=== PATIENT | female | born 1950 | race Caucasian/White ===

== ENCOUNTER 2017-08-06 06:21 | Day surgery (SDC) | payer OTHER ==
--- NOTE | 2017-08-05 23:06 | GHP ---
[f rep st] PREOP HISTORY AND PHYSICAL DATE OF ADMISSION: 08/06/2017 Date of surgery scheduled for 08/06/2017 on the gynecology service. PREOPERATIVE DIAGNOSIS: Thickened endometrium. HISTORY UPON PRESENTATION: Patient is a 66-year-old, G0, white female who has been on postmenopausal hormone replacement since the age of 57. Patient has used an atypical approach to progesterone therapy to balance the estrogen. In the past, she has not been able to tolerate traditional methods due to fatigue and only has a progesterone injection every 3 months. In the past, she has had withdrawal bleeding after each injection. However, in the summer she stopped having withdrawal bleeding. The patient had an ultrasound performed in March 2017 which revealed an endometrial thickness of 0.86 cm. This was a slight elevation in the previous endometrial thickness which the patient has had. She generally had regular ultrasounds due to a family history of ovarian cancer. The patient also has a small area of tissue consistent with an endometrial polyp, 5 x 5 mm, which seems to be stable in size. The remainder of the patient's ultrasound was normal and bilaterally her ovaries are small. The patient has had hormone replacement managed by local provider who attempted an endometrial biopsy in February due to the lack of withdrawal bleeds. The patient reported that that was unsuccessful due to the patient's menopausal tight cervix. The patient did not want to re-attempt endometrial biopsy in the office, but opts to go to the operating room for a more thorough assessment and removal of a polyp if found. The patient was given other options of stopping her hormone replacement to see if she would slough the lining versus attempting different progesterone support. The patient did try another progesterone injection in June, but did not have any bleeding. The patient really is hesitant to discontinue her hormones because she feels it dramatically effects her mental functioning. The patient was thoroughly counseled as to the risks and benefits of hysteroscopy, and the consent form is signed. PAST MEDICAL HISTORY: The patient had a bicuspid aortic valve and has been told she has plaque in her aortic root. She sees Dr. Littel and has an echo every 3 years with the last in the summer. The patient reports only minor regurgitation and does not do preventive antibiotics. Also, the patient is hypothyroid and takes Kirkwood replacement. History of osteopenia, history of depression. History of vulvar vestibulitis and vaginal dryness. PAST SURGICAL HISTORY: 1991: Tubal ligation. 1994: Right knee bursa removal. 1998: Left breast excisional biopsy. 2013: Right breast papilloma removed. This surgery was under general anesthesia and the patient had no problems. PAST OBSTETRIC HISTORY: Negative. ALLERGIES: Penicillin, Keflex, and erythromycin causing rashes. The patient also reports gluten allergy with celiac disease. CURRENT MEDICATIONS: 1. Estradiol transdermal patch 0.05 mg twice weekly. 2. Kirkwood Thyroid 45 mg alternating with 30 mg daily. 3. Lexapro 2.5 mg at bedtime. 4. Progesterone injections 100 mg q.3 months. 5. Vaginal estrogen cream 1 g 3 times a week per vagina. 6. Topical ointment for eczema. 7. Recently, fluvastatin added [address] Little. SOCIAL HISTORY: The patient is a nonsmoker. No alcohol or drug use. Patient in a long-term relationship. FAMILY HISTORY: Significant for 3 aunts with ovarian cancer and 1 aunt with breast cancer. The patient reports a family member has been tested and this is negative for the bracket gene. PAST LABORATORY TESTING: Patient's ultrasound in March revealed the uterus 6.7 x 3 x 3 cm with an endometrial thickness of 0.86 with an area of possible cervical polyp 5 x 5 mm. Both ovaries are small. The left ovary has 2 small simple cysts. Prior ultrasound done in November 2015 showed an endometrial thickness 5.9 cm, again with questionable polyp 5 x 6 mm. PHYSICAL EXAM: GENERAL: At the time of preop, the patient is a well-developed , well-nourished, white female in no physical distress. VITAL SIGNS: She is clinically afebrile. Blood pressure 108/70. LUNGS: Clear to auscultation bilaterally. CARDIOVASCULAR: Regular rate and rhythm with very minor systolic ejection murmur. ABDOMEN: Soft and nontender. Bimanual exam not repeated recently. See ultrasound report. ASSESSMENT: Thickened endometrium on hormone replacement with atypical progesterone usage. PLAN: We will proceed with hysteroscopy and D and C with possible polypectomy on 08/06/2017. Patient had intense cramping after Cytotec was used in the past and this will not be repeated. The patient will receive preoperative antibiotics. /[id number]/MODL MTDD
[2017-08-06] MEDS ORDERED: CLINDAMYCIN 900 MG/DEXTROSE 50 ML IV ONE (06:57)
[2017-08-06] MEDS ORDERED: LR 1,000 ML IV ONE (06:57)
[2017-08-06] MEDS ORDERED: SILVER NITRATE APPLICATOR 1 APPL TP ONE (07:02)
[2017-08-06 07:05] VITALS: RESP 16
[2017-08-06 07:18] LABS: PLATELET COUNT 214 10^3/uL (150-400)
--- NOTE | 2017-08-06 07:34 | PDHPUP ---
History & Physical Update H&P update statement: This history and physical update is based on an assessment of the patient which was completed after admission or registration (within 24 hours), but prior to the surgery/procedure.
--- NOTE | 2017-08-06 07:50 | PDANEPAE ---
ANE Past Medical History - Cardiovascular History Hx Hypertension: No Hx Arrhythmias: No Hx Chest Pain: No Hx Coronary Artery / Peripheral Vascular Disease: No Hx CHF / Valvular Disease: No Hx Palpitations: No Cardiovascular History Comment: BORDERLINE ELEV BP. PACS OCCASIONAL. BICUSPID AORTIC VALVE. AT RISK FOR ARTERIAL DISSECTION PER DR MCDANIELS - Pulmonary History Hx COPD: No Hx Asthma/Reactive Airway Disease: No Hx Recent Upper Respiratory Infection: No Hx Oxygen in Use at Home: No Hx Sleep Apnea: Yes Sleep Apnea Screening Result - Last Documented: Negative - Neurologic History Hx Cerebrovascular Accident: No Hx Seizures: No Hx Dementia: No - Endocrine History Hx Diabetes: Yes Hypothyroid: Yes Hyperthyroid: No Obesity: no Endocrine History Comment: HYPOTHYROID - Renal History Hx Renal Disorders: No - Liver History Hx Hepatic Disorders: No - Neurological & Psychiatric Hx Hx Neurological and Psychiatric Disorders: No - Cancer History Hx Cancer: No - Congenital Disorder History Hx Congenital Disorders: No - GI History Hx Gastrointestinal Disorders: No Gastrointestinal History Comment: CELIAC DISEASE - Other Health History Other Health History: ECZEMA. L UPPER THIGH SKIN INF IMPROVING - SPOKE WITH DR OLVERA - Chronic Pain History Chronic Pain: No - Surgical History Prior Surgeries: TUBAL LIGATION. KNEE R SURGERY. COLONOSCOPY. PAPILLOMA R BREAST. LUMP L BREAST ANE Review of Systems Review of Systems: - Exercise capacity METS (RN): 4 METS ANE Patient History - Allergies Allergies/Adverse Reactions: cephalexin [From Keflex] Allergy (Verified 08/06/17 07:02) erythromycin base Allergy (Verified 08/06/17 07:02) Penicillins Allergy (Verified 08/06/17 07:02) - Home Medications Home Medications: [place] Thyroid 07/08/17 [Last Taken 08/06/17 04:30] Desonide 0.05% Oint 07/08/17 [Last Taken 08/05/17] Estradiol Transdermal Patch 07/08/17 [Last Taken 08/05/17] Herbals/Supplements -Info Only 07/08/17 [Last Taken 08/01/17] Lexapro 07/08/17 [Last Taken 08/05/17] Progesterone 07/08/17 [Last Taken 08/05/17] Fluvastatin Sodium 08/05/17 [Last Taken 08/05/17] - NPO status NPO Since - Liquids (Date): 08/06/17 NPO Since - Liquids (Time): 04:30 NPO Since - Solids (Date): 08/05/17 NPO Since - Solids (Time): 20:00 - Smoking Hx Smoking Status: Never smoked ANE Labs/Vital Signs - Labs Result Diagrams: 08/06/17 07:10 - Vital Signs Blood Pressure: 124/76 Heart Rate: 64 Respiratory Rate: 16 O2 Sat (%): 93 Height: 173.99 cm Weight: 68.039 kg ANE Physical Exam - Airway Neck exam: FROM Mallampati Score: Class 1 Mouth exam: normal dental/mouth exam - Pulmonary Pulmonary: no respiratory distress - Cardiovascular Cardiovascular: regular rate and rhythym - ASA Status ASA Status: II ANE Anesthesia Plan Anesthesia Plan: GA w LMA
[2017-08-06] MEDS ORDERED: fentaNYL 100 MCG/2 ML INJ ONE ×2 (07:57→09:30)
[2017-08-06] MEDS ORDERED: PROPOFOL 200 MG/20 ML VIAL ONE ×2 (07:58→08:21)
[2017-08-06] MEDS ORDERED: ONDANSETRON 4 MG/2 ML VIAL ONE (08:54)
[2017-08-06] MEDS ORDERED: KETOROLAC 30 MG/1 ML SDV ONE (08:54)
[2017-08-06] MEDS ORDERED: LIDOCAINE 2% 5 ML SDV ONE (08:54)
[2017-08-06] MEDS ORDERED: DEXAMETHASONE 4 MG/ML VIAL ONE (08:54)
--- NOTE | 2017-08-06 09:17 | POSTOPPROG ---
Post Op Note Date of Operation: 08/06/17 Surgeon: Hafsa Fraga Anesthesiologist: Abundio Grove Anesthesia: LMA Pre-op Diagnosis: thickened lining Post-op Diagnosis: endometrial polyps Indication: atypical prog use with HRT and EMT 8 mm - cx stenosis and no EMB possible Procedure: hysteroscopic polypectomy Findings: multiple soft polypoid tissue in lining and cx, cx dilated easily to 7 Hag Inf/Abcess present in the surg proc area at time of surgery?: No Depth: Organ Space EBL: Minimal Complications: none Specimen(s): endometrial polypoid tissue
[2017-08-06 09:19] VITALS: TEMP 97.5
[2017-08-06] MEDS ORDERED: PROMETHAZINE HCL 25 MG/ML INJ IVP PRN (09:25)
[2017-08-06] MEDS ORDERED: NALOXONE HCL 0.4 MG/ML INJ IVP PRN (09:25)
[2017-08-06] MEDS ORDERED: LR 500 ML IV PRN (09:25)
[2017-08-06] MEDS ORDERED: HYDROCODONE/APAP 5/325 TAB PO PRN (09:25)
--- NOTE | 2017-08-06 09:26 | POSTANESTH ---
Post Anesthetic Evaluation Cardiovascular Status: Normal, Stable Respiratory Status: Normal, Stable Level of Consciousness/Mental Status: Can Participate in Eval Pain Control: Adequate, Prn Tx Ordered Nausea/Vomiting Control: Adequate, Prn Tx Ordered Complications Possibly Related to Anesthesia: None Noted
[2017-08-06] MEDS: fentaNYL 100 MCG/2 ML INJ IVP PRN ×2 (09:32→09:37)
--- NOTE | 2017-08-06 09:47 | GOP ---
[f rep st] OPERATIVE REPORT DATE OF OPERATION: 08/06/2017 SURGEON: Hafsa Fraga MD ANESTHESIA: Laryngeal mask anesthesia. ANESTHESIOLOGIST: Sanna Grove MD. PREOPERATIVE DIAGNOSIS: Thickened endometrium. POSTOPERATIVE DIAGNOSIS: Endometrial polyps. PROCEDURE PERFORMED: Hysteroscopic polypectomy. FINDINGS: SPECIMENS: The specimens of the endometrial polyps were sent to Pathology. ESTIMATED BLOOD LOSS: Minimal. INDICATIONS: Patient is a 66-year-old white female on hormone replacement with an atypical progester one method of q.3 month IM injections. She has typically had withdrawal bleeding which stopped in summer. Pelvic ultrasound revealed a thickened endometrium at 8 mm and the patient was adv ised to have sampling. An endometrial biopsy was attempted but the cervix was too stenotic. The pat ient desired hysteroscopic evaluation and polypectomy if polyps found. Risks and benefits discussed and the consent form signed. DESCRIPTION OF PROCEDURE: Patient was taken to the operating room where following satisfactory laryn geal mask anesthesia, the patient was placed in dorsal lithotomy position. The patient's perineum an d vagina were prepped and the patient draped in the usual sterile manner for hysteroscopy. The patie nt had voided prior to coming to the operating room. She had on SCDs for DVT prophylaxis and had rec eived preoperative antibiotics. A sterile speculum was placed within the vagina. A single-tooth ten aculum was placed on the anterior lip of the cervix and gentle traction applied. The cervix was slow ly dilated up to 7 Hegar dilator. There was no issue with dilation. The small hysteroscope then was introduced without any problem and good visualization obtained. There were several small polyps not ed in the endometrial cavity as well as along the cervical lining. These were removed with morcellat ion under direct visualization. After removal of these areas, then the endometrial cavity appeared n ormal. There were no complications with perforation or excessive bleeding. The hysteroscope then wa s removed. Total deficit was 240 cc that was felt to be on the floor and in the drapes. There was n o bleeding from the tenaculum site. The patient tolerated the procedure well, was awoken easily and taken out of position and taken to the recovery room in stable condition. DISPOSITION: The Betadine was cleaned off the patient and she was taken to the recovery room. /[id number]/MODL
[2017-08-06] MEDS ORDERED: HYDROCODONE/APAP 5/325 TAB ONE (09:59)
[2017-08-06 10:17] VITALS: BP 115/76; PULSE 67; O2SAT 93
== END 2017-08-06 10:50 | disposition home or self-care (01) ==
LOC: FSGY 06:21
PROVIDERS: ATTEND Obstetrics & Gynecology
PROC: 0UDB8ZX Extraction of Endometrium, Via Natural or Artificial Opening Endoscopic, Diagnostic (ICD-10-PCS; principal; 2017-08-06 08:00)
DX: N84.0 Polyp of corpus uteri (principal); N88.2 Stricture and stenosis of cervix uteri; Q23.1 Congenital insufficiency of aortic valve; E03.9 Hypothyroidism, unspecified; F32.9 Major depressive disorder, single episode, unspecified; M81.0 Age-related osteoporosis without current pathological fracture; K90.0 Celiac disease; Z80.41 Family history of malignant neoplasm of ovary; Z79.890 Hormone replacement therapy; Z88.0 Allergy status to penicillin
CPT/HCPCS: 58558; C1782; J1100; J1885; J2405; J2704; J3010

== ENCOUNTER → 2018-04-03 | Outpatient (CLI) | payer OTHER | LOC: FIMAGING 09:28 | PROVIDERS: ATTEND Psychiatry & Neurology Neurology | DX: F07.89 Other personality and behavioral disorders due to known physiological condition (principal) ==

== ENCOUNTER → 2018-11-04 | Outpatient (CLI) | payer OTHER | LOC: FIMAGING 08:13 | PROVIDERS: ATTEND Family Medicine | DX: Z12.31 Encounter for screening mammogram for malignant neoplasm of breast (principal); Z80.3 Family history of malignant neoplasm of breast ==